=== PATIENT | female | born 1985 | race Asian ===

== ENCOUNTER 2016-10-17 14:00 | Emergency (ER) | payer SELFPAY ==
[~2016-10-17] VITALS: Ht 165.1 cm; Wt 70.0 kg
[2016-10-17] MEDS ORDERED: SODIUM CHLOR 0.9% 1000 ML INJ 1,000 ML IV SCH (14:03)
[2016-10-17] MEDS ORDERED: LORazepam 2 MG/ML VIAL ONE (14:04)
--- NOTE | 2016-10-17 14:08 | PD ---
HPI Chief Complaint: SOB Time Seen by Provider: 14:08 Travel History International Travel<30 days: No Contact w/Intl Traveler<30days: No History of Present Illness HPI 31-year-old female is brought to the emergency department by EMS for evaluation of shortness of breath. Per EMS report the patient has been hyperventilating for the past hour as noted by patient's family. The patient is currently hyperventilating however is able to provide me with some history. States that she woke up this morning and wasn't feeling well and cooked her father breakfast. States that while she was cooking her father breakfast she felt left anterior chest pain with shortness of breath but that she was going to be late for work and had to leave. 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 States that her shortness of breath and chest pain worsened. States that she feels as though she can't catch her breath. She is complaining of tingling sensation and cramping in her hands and lips. States that this has happened to her once in the past. States that she has some "problem with her heart" but is not more specific than that. Denies any other medical conditions. Denies cough or cold symptoms, fever, chills, nausea, vomiting, abdominal pain. Denies . No other complaints. PFSH Past Medical History ?: Not Social History Alcohol Use: No Tobacco Use: No Substance Use: No Allergies-Medications (Allergen,Severity, Reaction): Coded Allergies: No Known Allergies (Unverified , 10/17/16) Review of Systems Except as stated in HPI: all other systems reviewed are Neg Physical Exam Narrative GENERAL: Well-nourished and well-developed female patient hyperventilating. SKIN: Warm and dry. HEAD: Normocephalic and atraumatic. EYES: No injection, drainage, or hyphema noted. PERRLA. EOMI. ENT: No nasal drainage noted. Oropharynx is clear. NECK: Supple and the trachea is midline. CARDIOVASCULAR: Regular rate and rhythm. RESPIRATORY: Increased respiratory rate. Breath sounds are equal bilaterally with no wheezing, rhonchi, or crackles. Speaking in shortened sentences. GASTROINTESTINAL: Abdomen is soft, non-tender, and nondistended. MUSCULOSKELETAL: No obvious deformities, swelling, cyanosis, or ecchymosis is present throughout the upper and lower extremities. Patient has full range of motion without any signs of neurovascular compromise. NEUROLOGICAL: Awake, alert, and oriented. Normal speech and gait. Cranial nerves are grossly intact. Data Data Last Documented VS Vital Signs Date Time Temp Pulse Resp B/P Pulse Ox O2 Delivery O2 Flow Rate FiO2 10/17/16 14:45 99 Room Air 10/17/16 14:21 98.2 90 36 116/80 Orders Electrocardiogram (10/17/16 14:03) Ckmb (Isoenzyme) Profile (10/17/16 14:03) Complete Blood Count With Diff (10/17/16 14:03) Comprehensive Metabolic Panel (10/17/16 14:03) Prothrombin Time / Inr (Pt) (10/17/16 14:03) Act Partial Throm Time (Ptt) (10/17/16 14:03) Troponin I (10/17/16 14:03) Chest, Single Ap (10/17/16 14:03) Ecg Monitoring (10/17/16 14:03) Iv Access Insert/Monitor (10/17/16 14:03) Oximetry (10/17/16 14:03) Oxygen Administration (10/17/16 14:03) Sodium Chloride 0.9% Flush (Ns Flush) (10/17/16 14:15) Lorazepam Inj (Ativan Inj) (10/17/16 14:15) Sodium Chlor 0.9% 1000 Ml Inj (Ns 1000 M (10/17/16 14:03) Lorazepam Inj (Ativan Inj) (10/17/16 14:04) Lorazepam Inj (Ativan Inj) (10/17/16 14:15) Arterial Blood Gas (Abg) (10/17/16 ) Ondansetron Inj (Zofran Inj) (10/17/16 14:30) D-Dimer (10/17/16 14:03) CKMB (10/17/16 14:37) CKMB% (10/17/16 14:37) Labs Laboratory Tests Test 10/17/16 10/17/16 14:28 14:37 Blood Gas Puncture Site LT RADIAL Blood Gas Patient Temperature 98.6 Blood Gas HCO3 14 mmol/L Blood Gas Base Excess -6.9 mmol/L Blood Gas Oxygen Saturation 98 % Arterial Blood pH 7.65 Arterial Blood Partial 13 mmHg Pressure CO2 Arterial Blood Partial 133 mmHG Pressure O2 Arterial Blood Oxygen Content 23.0 Vol % Arterial Blood 1.1 % Carboxyhemoglobin Arterial Blood Methemoglobin 0.5 % Blood Gas Hemoglobin 16.5 G/DL Blood Gas Inspired Oxygen 21 % White Blood Count 7.2 TH/MM3 Red Blood Count 5.27 MIL/MM3 Hemoglobin 16.0 GM/DL Hematocrit 46.2 % Mean Corpuscular Volume 87.6 FL Mean Corpuscular Hemoglobin 30.4 PG Mean Corpuscular Hemoglobin 34.7 % Concent Red Cell Distribution Width 12.2 % Platelet Count 253 TH/MM3 Mean Platelet Volume 7.3 FL Neutrophils (%) (Auto) 56.1 % Lymphocytes (%) (Auto) 34.3 % Monocytes (%) (Auto) 8.5 % Eosinophils (%) (Auto) 0.7 % Basophils (%) (Auto) 0.4 % Neutrophils # (Auto) 4.1 TH/MM3 Lymphocytes # (Auto) 2.5 TH/MM3 Monocytes # (Auto) 0.6 TH/MM3 Eosinophils # (Auto) 0.0 TH/MM3 Basophils # (Auto) 0.0 TH/MM3 CBC Comment DIFF FINAL Differential Comment Prothrombin Time 10.5 SEC Prothromb Time International 1.0 RATIO Ratio Activated Partial 28.6 SEC Thromboplast Time D-Dimer Quantitative (PE/DVT) 0.34 MG/L FEU Sodium Level 141 MEQ/L Potassium Level 3.5 MEQ/L Chloride Level 107 MEQ/L Carbon Dioxide Level 20.4 MEQ/L Anion Gap 14 MEQ/L Blood Urea Nitrogen 9 MG/DL Creatinine 0.77 MG/DL Estimat Glomerular Filtration 86 ML/MIN Rate Random Glucose 76 MG/DL Calcium Level 9.7 MG/DL Total Bilirubin 0.4 MG/DL Aspartate Amino Transf 21 U/L (AST/SGOT) Alanine Aminotransferase 24 U/L (ALT/SGPT) Alkaline Phosphatase 46 U/L Total Creatine Kinase 149 U/L Creatine Kinase MB 0.9 NG/ML Troponin I LESS THAN 0.02 NG/ML Total Protein 8.1 GM/DL Albumin 4.0 GM/DL MDM Medical Decision Making Medical Screen Exam Complete: Yes Emergency Medical Condition: Yes Differential Diagnosis Anxiety versus ACS versus pneumonia versus pneumothorax Narrative Course 31-year-old female presents to the emergency department for evaluation of shortness of breath. Patient is afebrile. Her respiratory rate is 36. Oxygen saturation is 99-100% on room air. She is hyperventilating currently. Her lungs are clear to auscultation. She is complaining of chest pain as well. EKG shows sinus rhythm with no acute ST elevations or depressions. Patient is given Ativan 2 mg IM. IV access is obtained, labs were drawn and sent. Patient is placed on cardiac telemetry and pulse oximetry monitoring. CBC shows slightly elevated hemoglobin and hematocrit, otherwise unremarkable. CMP shows slightly decreased bicarbonate, likely secondary to hyperventilation. Troponin is less than 0.02. Coags are unremarkable. D-dimer is negative. ABG is consistent with hyperventilation. Chest x-ray is negative. Patient is reassessed after medication and is now resting comfortably without any complaints. This is a panic attack. The patient is advised to follow-up with a PCP as an outpatient. Patient and family verbalized understanding and agreement with treatment plan. I discussed the case with my attending physician Dr. Inman who is aware of the patients history, physical examination findings, and treatment plan. Diagnosis Primary Impression: Panic attack Referrals: Primary Care Physician Patient Instructions: General Instructions, Panic Attack (ED) Additional Instructions: Follow-up with your Primary Care Physician. Return to the ED for any acute worsening of symptoms. Med/Other Pt SpecificInfo: No Change to Meds Disposition: 01 DISCHARGE HOME Condition: Stable Shanna Mcintosh Oct 17, 2016 14:08
[2016-10-17] MEDS ORDERED: LORazepam 2 MG/ML VIAL IV PUSH ONE (14:15)
[2016-10-17] MEDS ORDERED: SODIUM CHLORIDE 0.9% FLUSH 10 ML FLUSH IVF PRN (14:15)
[2016-10-17] MEDS ORDERED: LORazepam 2 MG/ML VIAL IM ONE (14:15)
[2016-10-17 14:21] VITALS: BP 116/80; PULSE 90; RESP 36; TEMP 98.2; O2SAT 99
[2016-10-17] MEDS ORDERED: ONDANSETRON HCL 4 MG/2 ML VIAL IV PUSH ONE (14:30)
[2016-10-17 14:56] LABS: AUTOMATED NEUTROPHIL # 4.1 TH/MM3 (1.8-7.7); BASOPHIL % 0.4 % (0.0-2.0); EOSINOPHIL % 0.7 % (0.0-4.0); HEMATOCRIT 46.2 % (35.0-46.0); HEMO FLAGS DIFF FINAL; LYMPH % 34.3 % (9.0-44.0); LYMPHOCYTE # 2.5 TH/MM3 (1.0-4.8); MEAN CELL VOLUME 87.6 FL (80.0-100.0); MEAN CORPUSCULAR HEMOGLOBIN 30.4 PG (27.0-34.0); MEAN CORPUSCULAR HGB CONC 34.7 % (32.0-36.0); MONO % 8.5 % (0.0-8.0); NEUT % 56.1 % (16.0-70.0); PLATELET COUNT 253 TH/MM3 (150-450); RED BLOOD COUNT 5.27 MIL/MM3 (4.00-5.30); RED CELL DISTRIBUTION WIDTH 12.2 % (11.6-17.2); WHITE BLOOD COUNT 7.2 TH/MM3 (4.0-11.0)
[2016-10-17 15:14] LABS: BLOOD GAS BASE EXCESS -6.9 mmol/L (-2-2); BLOOD GAS CARBOXYHEMOGLOBIN 1.1 % (0-4); BLOOD GAS HCO3 14 mmol/L (22-26); BLOOD GAS METHEMOGLOBIN 0.5 % (0-2); BLOOD GAS O2 HGB SATURATION 98 % (90-100); BLOOD GAS PCO2 13 mmHg (38-42); BLOOD GAS PO2 133 mmHG (61-120); BLOOD GAS TOTAL HGB 16.5 G/DL (12.0-16.0); CRITICAL VALUE YES; TEMP CORR TO 98.6
[2016-10-17 15:15] LABS: DRAW SITE LT RADIAL; FIO2 21 %; NUMBER OF ARTERIAL PUNCTURES 1; STAT YES; ULNAR PULSE PRESENT
[2016-10-17 15:17] LABS: APTT (PATIENT) 28.6 SEC (24.3-30.1); PROTHROMBIN TIME - PATIENT 10.5 SEC (9.8-11.6)
[2016-10-17 15:25] LABS: ALKALINE PHOSPHATASE 46 U/L (45-117); CREATINE KINASE 149 U/L (26-192); TOTAL BILIRUBIN ADULT 0.4 MG/DL (0.2-1.0)
[2016-10-17 15:28] LABS: ALT (GPT) 24 U/L (10-53); ANION GAP 14 MEQ/L (5-15); AST (GOT) 21 U/L (15-37); BICARBONATE 20.4 MEQ/L (21.0-32.0); BLOOD UREA NITROGEN 9 MG/DL (7-18); CHLORIDE 107 MEQ/L (98-107); GLOMERULAR FILTRATION RATE 86 ML/MIN (>89); POTASSIUM 3.5 MEQ/L (3.5-5.1); SODIUM (NA) 141 MEQ/L (136-145)
[2016-10-17 15:37] LABS: CKMB 0.9 NG/ML (0.5-3.6)
--- NOTE | 2016-10-17 16:13 | RADRPT ---
EXAM DATE/TIME: 10/17/2016 14:32 [facility] COMPARISON: No previous studies available for comparison. INDICATIONS : Chest pain and shortness of breath. MEDICAL HISTORY : None. SURGICAL HISTORY : None. ENCOUNTER: Initial ACUITY: 1 day PAIN SCORE: 2/10 LOCATION: Bilateral chest FINDINGS: A single view of the chest demonstrates the lungs to be symmetrically aerated without evidence of mas s, infiltrate or effusion. Minimal basilar atelectasis. The cardiomediastinal contours are unremarkab le. Osseous structures are intact. CONCLUSION: 1. Minimal basilar atelectasis. Scott Victoria MD on October 17, 2016 at 16:10 Board Certified Radiologist. This report was verified electronically.
[2016-10-17 16:37] VITALS: O2SAT 98
--- NOTE | 2016-10-17 16:45 | PD ---
Data Data Last Documented VS Vital Signs Date Time Temp Pulse Resp B/P Pulse Ox O2 Delivery O2 Flow Rate FiO2 10/17/16 16:37 98 10/17/16 14:45 Room Air 10/17/16 14:21 98.2 90 36 116/80 Orders Electrocardiogram (10/17/16 14:03) Ckmb (Isoenzyme) Profile (10/17/16 14:03) Complete Blood Count With Diff (10/17/16 14:03) Comprehensive Metabolic Panel (10/17/16 14:03) Prothrombin Time / Inr (Pt) (10/17/16 14:03) Act Partial Throm Time (Ptt) (10/17/16 14:03) Troponin I (10/17/16 14:03) Chest, Single Ap (10/17/16 14:03) Ecg Monitoring (10/17/16 14:03) Iv Access Insert/Monitor (10/17/16 14:03) Oximetry (10/17/16 14:03) Oxygen Administration (10/17/16 14:03) Sodium Chloride 0.9% Flush (Ns Flush) (10/17/16 14:15) Lorazepam Inj (Ativan Inj) (10/17/16 14:15) Sodium Chlor 0.9% 1000 Ml Inj (Ns 1000 M (10/17/16 14:03) Lorazepam Inj (Ativan Inj) (10/17/16 14:04) Lorazepam Inj (Ativan Inj) (10/17/16 14:15) Arterial Blood Gas (Abg) (10/17/16 ) Ondansetron Inj (Zofran Inj) (10/17/16 14:30) D-Dimer (10/17/16 14:03) CKMB (10/17/16 14:37) CKMB% (10/17/16 14:37) Labs Laboratory Tests Test 10/17/16 10/17/16 14:28 14:37 Blood Gas Puncture Site LT RADIAL Blood Gas Patient Temperature 98.6 Blood Gas HCO3 14 mmol/L Blood Gas Base Excess -6.9 mmol/L Blood Gas Oxygen Saturation 98 % Arterial Blood pH 7.65 Arterial Blood Partial 13 mmHg Pressure CO2 Arterial Blood Partial 133 mmHG Pressure O2 Arterial Blood Oxygen Content 23.0 Vol % Arterial Blood 1.1 % Carboxyhemoglobin Arterial Blood Methemoglobin 0.5 % Blood Gas Hemoglobin 16.5 G/DL Blood Gas Inspired Oxygen 21 % White Blood Count 7.2 TH/MM3 Red Blood Count 5.27 MIL/MM3 Hemoglobin 16.0 GM/DL Hematocrit 46.2 % Mean Corpuscular Volume 87.6 FL Mean Corpuscular Hemoglobin 30.4 PG Mean Corpuscular Hemoglobin 34.7 % Concent Red Cell Distribution Width 12.2 % Platelet Count 253 TH/MM3 Mean Platelet Volume 7.3 FL Neutrophils (%) (Auto) 56.1 % Lymphocytes (%) (Auto) 34.3 % Monocytes (%) (Auto) 8.5 % Eosinophils (%) (Auto) 0.7 % Basophils (%) (Auto) 0.4 % Neutrophils # (Auto) 4.1 TH/MM3 Lymphocytes # (Auto) 2.5 TH/MM3 Monocytes # (Auto) 0.6 TH/MM3 Eosinophils # (Auto) 0.0 TH/MM3 Basophils # (Auto) 0.0 TH/MM3 CBC Comment DIFF FINAL Differential Comment Prothrombin Time 10.5 SEC Prothromb Time International 1.0 RATIO Ratio Activated Partial 28.6 SEC Thromboplast Time D-Dimer Quantitative (PE/DVT) 0.34 MG/L FEU Sodium Level 141 MEQ/L Potassium Level 3.5 MEQ/L Chloride Level 107 MEQ/L Carbon Dioxide Level 20.4 MEQ/L Anion Gap 14 MEQ/L Blood Urea Nitrogen 9 MG/DL Creatinine 0.77 MG/DL Estimat Glomerular Filtration 86 ML/MIN Rate Random Glucose 76 MG/DL Calcium Level 9.7 MG/DL Total Bilirubin 0.4 MG/DL Aspartate Amino Transf 21 U/L (AST/SGOT) Alanine Aminotransferase 24 U/L (ALT/SGPT) Alkaline Phosphatase 46 U/L Total Creatine Kinase 149 U/L Creatine Kinase MB 0.9 NG/ML Troponin I LESS THAN 0.02 NG/ML Total Protein 8.1 GM/DL Albumin 4.0 GM/DL MDM Supervised Visit with OC: Yes Narrative Course The history, exam, and medical decision-making in the associated mid-level provider note were completed with my assistance. I reviewed and agree with the findings presented. I attest that I had a [id number] encounter with the patient on the same day, and personally performed and documented my assessment and findings in the medical record. *My assessment and Findings: 28th year-old woman presents emergent from with chest pain, complicated by severe hyperventilation and anxiety symptoms. Workups otherwise unremarkable with a marked hyperventilation. Responded well to some IM Ativan. Recommend continue supportive treatment. Simply she's had one previous similar episode in the past. Diagnosis Primary Impression: Panic attack Referrals: Primary Care Physician Patient Instructions: General Instructions, Panic Attack (ED) Additional Instruction: Follow-up with your Primary Care Physician. Return to the ED for any acute worsening of symptoms. Disposition: 01 DISCHARGE HOME Condition: Stable Sarbjit Inman MD Oct 17, 2016 16:45
[2016-10-17 18:13] VITALS: BP 108/56; PULSE 80; RESP 20; O2SAT 98
--- NOTE | 2016-10-18 10:43 | EKG ---
Date Performed: 10/17/2016 Time Performed: 14:36:06 PTAGE: 31 years EKG: Sinus rhythm NORMAL ECG NO PREVIOUS TRACING DOCTOR: Benny Hardy Interpretating Date/Time 10/18/2016 10:39:55
== END 2016-10-17 18:20 | disposition home or self-care (01) ==
LOC: NEPC 14:00
DX: F41.0 Panic disorder [episodic paroxysmal anxiety] (principal); R06.4 Hyperventilation; R07.9 Chest pain, unspecified; R20.2 Paresthesia of skin
CPT/HCPCS: 36600; 71010; 80053; 82550; 82552; 82805; 84484; 85025; 85379; 85610; 85730; 93005; 96361; 96372; 96374; 99285; J2060; J2405; J7030